=== PATIENT | male | born 1960 | race Asian ===

== ENCOUNTER 2017-02-08 13:55 | Emergency (ER) | payer OTHER ==
[~2017-02-08] VITALS: Ht 165.1 cm; Wt 72.7 kg
[2017-02-08] MEDS ORDERED: HYDROXAZINE TP (14:12)
[2017-02-08] MEDS ORDERED: DEXAMETHASONE SOD PHOS 4 MG/ML VIAL IM ONE (16:00)
[2017-02-08 17:00] VITALS: BP 134/81
== END 2017-02-08 17:02 | disposition home or self-care (01) ==
LOC: EMS 13:57
DX: L23.9 Allergic contact dermatitis, unspecified cause (principal); L29.9 Pruritus, unspecified; F17.210 Nicotine dependence, cigarettes, uncomplicated
CPT/HCPCS: 96372; 99283; J1100

== ENCOUNTER 2017-02-26 18:05 | Emergency (ER) | payer OTHER ==
[~2017-02-26] VITALS: Ht 167.6 cm; Wt 80.9 kg
[~2017-02-26 18:05] MED LIST: HYDROXAZINE TP
[2017-02-26] MEDS ORDERED: PredniSONE 20 MG TABLET PO ONE (22:15)
[2017-02-26] MEDS ORDERED: DOXYCYCLINE 100 MG CAPSULE PO ONE (22:15)
[2017-02-26 23:01] VITALS: BP 136/87
== END 2017-02-26 23:08 | disposition home or self-care (01) ==
LOC: EMS 18:07
DX: L01.02 Bockhart's impetigo (principal); F17.210 Nicotine dependence, cigarettes, uncomplicated
CPT/HCPCS: 99283; J7512